=== PATIENT | male | born 1980 | race Caucasian/White ===

== ENCOUNTER 2017-10-26 04:42 | Emergency (ER) | payer MEDICARE, MEDICAID ==
[~2017-10-26] VITALS: Ht 180.3 cm; Wt 77.1 kg
[~2017-10-26 04:42] MED LIST: ACETAMINOPHEN-1 EAC1 PO; ADDERALL 30 MG30 MG PO; AMOXICILLIN 50500 M1 PO; AMOXICILLIN500 M1 PO; ANAPROX DS550 MG PO; ANTIPYRINE-BENZ10 ML OT; AUGMENTIN 875875 MG PO; BACTRIM DS TAB1 EACH PO; BACTROBAN CREAM30 G1 TOP; CELEXA40 MG PO; CIPRO HC OTIC S10 ML OTIC; CIPRODEX OTIC7.5 ML OTIC; CLEOCIN HCL150 MG PO; CLEOCIN HCL300 MG PO; CLONAZEPAM; CORTISPORIN OTI10 ML OTIC; DEPAKOTE125 MG; DOXYCYCLINE 10100 MG PO; HYDROCODON-ACE1 EAC1; HYDROCODON-ACE1 EAC7 PO; HYDROCODONE-AP1 EAC6 PO; Hydrocodone PO; IBUPROFEN 800800 M1 PO; IBUPROFEN 800800 MG PO; LAMICTAL XR100 MG; LAMICTAL100 MG PO; LAMOTRIGINE200 MG; LASIX 40 MG TAB40 M1 PO; LITHIUM CARBON300 M3; NAPROSYN500 MG PO; NORCO 5-325 TA1 EACH PO; PENICILLIN VK500 M1 PO; PERCOCET 5-3251 EACH PO; PROAIR HFA8.5 GM PO; PROPRANOLOL 20M20 M1 PO; RITALIN20 MG; SEROQUEL 25 MG25 M1 PO; SEROQUEL 50 MG50 M1 PO; SEROQUEL400 MG; TOPAMAX 25 MG T25 M1 PG; TRAMADOL 50 MG50 MG PO; VALIUM10 MG; VISTARIL 25 MG25 M1 PO; XANAX 1 MG TABLE1 MG PO; XANAX XR2 MG
[2017-10-26] MEDS ORDERED: HYDROCODON-ACE1 EAC8 PO (05:41)
[2017-10-26 05:50] VITALS: BP 107/63
== END 2017-10-26 05:53 | disposition home or self-care (01) ==
LOC: M.ERS 04:42
DX: S01.312A Laceration without foreign body of left ear, initial encounter (principal); S01.112A Laceration without foreign body of left eyelid and periocular area, initial encounter; F32.9 Major depressive disorder, single episode, unspecified; F17.210 Nicotine dependence, cigarettes, uncomplicated; Z86.14 Personal history of Methicillin resistant Staphylococcus aureus infection; Z88.8 Allergy status to other drugs, medicaments and biological substances; X93.XXXA Assault by handgun discharge, initial encounter; Y93.89 Activity, other specified; Y92.89 Other specified places as the place of occurrence of the external cause; Y99.8 Other external cause status

== ENCOUNTER 2018-10-20 01:02 | Emergency (ER) | payer MEDICARE, MEDICAID ==
[~2018-10-20] VITALS: Ht 175.3 cm; Wt 65.8 kg
[~2018-10-20 01:02] MED LIST changes: +HYDROCODON-ACE1 EAC8 PO
[2018-10-20 02:44] LABS: ABSOLUTE BASOPHILS 0.1 thou/uL (0.0-0.2); ABSOLUTE EOSINOPHILS 0.2 thou/uL (0.0-0.7); ABSOLUTE MONOCYTES 1.3 thou/uL (0.0-1.2); ABSOLUTE NEUTROPHILS 6.2 thou/uL (1.6-8.1); BASOPHILS 0.6 %; EOSINOPHILS 1.6 %; HEMATOCRIT 39.7 % (42.0-52.0); HEMOGLOBIN 13.2 gm/dL (14.0-18.0); LYMPHOCYTES 20.4 %; MCH 29.4 pg (26.0-34.0); MCHC 33.3 g/dL (28.0-37.0); MCV 88.2 fL (80.0-100.0); MONOCYTES 13.3 %; MPV 7.4 fl. (7.2-11.1); NUCLEATED RBCS 0 /100WBC; PLATELET COUNT* 297 thou/uL (150-400); POLYS 64.1 %; WBC 9.7 thou/uL (4.0-11.0)
[2018-10-20 02:50] LABS: CALCIUM 8.7 mg/dL (8.5-10.1); CREATININE 0.8 mg/dL (0.6-1.3); POTASSIUM 3.9 mmol/L (3.5-5.1)
[2018-10-20] MEDS ORDERED: BACTRIM DS TAB1 EACH PO (04:15)
[2018-10-20] MEDS ORDERED: NORCO 5-325 TA1 EAC1 PO (04:15)
[2018-10-20] MEDS ORDERED: IBUPROFEN 800800 MG PO (04:15)
[2018-10-20 04:27] VITALS: BP 105/62
== END 2018-10-20 04:33 | disposition home or self-care (01) ==
LOC: M.ERS 01:02
PROVIDERS: Personal Emergency Response Attendant
DX: L02.414 Cutaneous abscess of left upper limb (principal); F32.9 Major depressive disorder, single episode, unspecified; F17.210 Nicotine dependence, cigarettes, uncomplicated; Z88.8 Allergy status to other drugs, medicaments and biological substances; Z86.14 Personal history of Methicillin resistant Staphylococcus aureus infection

== ENCOUNTER 2018-10-21 19:27 | Emergency (ER) | payer MEDICARE, MEDICAID ==
[~2018-10-21] VITALS: Ht 175.3 cm; Wt 65.8 kg
[~2018-10-21 19:27] MED LIST changes: +NORCO 5-325 TA1 EAC1 PO
[2018-10-21 22:46] VITALS: BP 119/65
== END 2018-10-21 22:46 | disposition home or self-care (01) ==
LOC: M.ERS 19:27
DX: L02.414 Cutaneous abscess of left upper limb (principal); L03.114 Cellulitis of left upper limb; F32.9 Major depressive disorder, single episode, unspecified; F17.210 Nicotine dependence, cigarettes, uncomplicated; Z88.8 Allergy status to other drugs, medicaments and biological substances; Z86.14 Personal history of Methicillin resistant Staphylococcus aureus infection